=== PATIENT | female | born 1945 | race Caucasian/White ===

== ENCOUNTER 2016-09-14 14:37 | Emergency (ER) | payer MEDICARE, OTHER ==
--- NOTE | 2016-09-14 15:36 | ED Physician Documentation ---
Flank Pain - HPI Stated Complaint: Right flank pain Chief Complaint: Abdominal Pain Onset: hours Duration: waxing, other Severity: mild Quality: pain Associated Symptoms: denies: fever, chills Exacerbated by: nothing Relieved by: nothing Further Comments: yes (Patient has been ahving some nondiscript right flank pain. No precipitating or modifying factor noted. Has had some nausea, no vomiting noted. Has had about a 30lb weight loss over the last 6 months. No breathing problems. Has had two CVA recently, has had pleural effusion on the left with thoracentesis. No evidence of cancer on cytology (done at the [facility]) ) - ROS CONST: no problems GI/: constipation (Not having BM but 2 times a week) CVS/RESP: none - SOCIAL HX Smoking History: quit less than 1 year (2-4 ppd, quit 6 months ago) Alcohol Use: none Drug Use: none - FAMILY HX Family History: no significant history - PAST HX Past History: other (CVA, DVT) Ischemic Bowel Risk Factors: none Other History: none Surgeries/Procedures: other (removal of salivary gland, BTL) Immunizations: influenza - VITAL SIGNS Vital Signs: Vital Signs Temp Pulse Resp BP Pulse Ox 98.3 F 72 16 139/70 90 L 09/14/16 15:00 09/14/16 15:00 09/14/16 15:00 09/14/16 15:00 09/14/16 15:00 - REVIEWED ASSESSMENTS Nursing Assessment Reviewed: Yes Vitals Reviewed: Yes Abdominal Pain Physical Exam - Physical Exam General Appearance: alert, mild distress NECK: normal inspection, supple. No: stiff neck RESPIRATORY: no resp distress, chest non-tender, other (decreased in the LLL). No: wheezes, rales, rhonchi CVS: reg rate & rhythm, heart sounds normal, equal pulses, no murmur, no gallop ABDOMEN: soft, no organomegaly, normal bowel sounds, no abdominal bruit, no distension, non-tender. No: distended, guarding BACK: normal inspection, no CVA tenderness. No: CVA tenderness (R), CVA tenderness (L) SKIN: warm/dry, normal color, other (ecchymotic lesions) NEURO: oriented X3, CN's nml as tested, motor nml, sensation nml Vital Signs: Vital Signs Temp Pulse Resp BP Pulse Ox 98.3 F 72 16 139/70 90 L 09/14/16 15:00 09/14/16 15:00 09/14/16 15:00 09/14/16 15:00 09/14/16 15:00 Discharge Clincal Impression: Lung mass, Weight loss Additional Instructions: Start drinking some Ensure/ Boost on a daily basis. I will make an appointment with [facility] for further diagnosis and treatment. Home Medications: Ambulatory Orders Rivaroxaban [Xarelto] 20 mg PO DAILY 09/14/16 Condition: Good Disposition: HOME, SELF-CARE Decision to Admit: NO Date of Decison to Admit: 09/14/16 Decision Time: 18:04
[2016-09-14 15:47] LABS: BASOPHILS % 0.1 (0.0-1.5); EOSINOPHILS % 0.7 % (0.0-6.8); LYMPHOCYTES # 0.7 # k/uL (0.6-4.0); MONOCYTES # 0.4 # k/uL (0.0-0.9); MONOCYTES % 4.4 % (0.0-11.0); NEUTROPHILS # 6.7 # k/uL (1.4-7.7)
[2016-09-14] MEDS ORDERED: 0.9 % SODIUM CHLORIDE 1,000 ML IV ONE (15:47)
[2016-09-14 16:00] LABS: eGFR (African) > 60; eGFR (Non-African) > 60
[2016-09-14] MEDS ORDERED: 0.9 % SODIUM CHLORIDE 1,000 ML IV SCH ×2 (16:00→17:00)
[2016-09-14 18:44] VITALS: BP 154/85
--- NOTE | 2016-09-14 23:58 | Diagnostic Imaging Report ---
Report Submission Date: Sep 14, 2016 4:36:07 PM SERVICE OFFICER Patient ~ Study Name: LUIS HOUSTON ~ Date: Sep 14, 2016 4:07:30 PM SERVICE OFFICER ~ Modality Type: CR Gender: F ~ Description: ABDOMEN : 45 ~ Institution: [facility] Physician: CHONG JACK ~ ~ ~ ~ Abdominal series and single view chest History: Abdominal pain, constipation, and low back pain Findings: A single view of the chest reveals hyperinflation, calcified granulomas, clear right lung emphysema, and aortic atherosclerosis. The lower half of the left hemithorax is opacified consistent with a combination of left lower lobe and lingular consolidation or collapse + pleural effusion. A mass lesion cannot be excluded in the left lung. Upright and supine abdominal radiographs reveal a normal bowel gas pattern without obstruction or free air. Moderate colonic stool is present without significant constipation. Lower lumbar spondylosis is present. Impression: 1. Dense consolidation or collapse of the left lower lung with left pleural effusion. A large mass lesion cannot be excluded. Recommend computed tomography of the chest with intravenous contrast. 2. Nonobstructive bowel gas pattern. 3. Emphysema. ~ Electronically signed on Sep 14, 2016 4:36:07 PM SERVICE OFFICER by: Lex BROCK
--- NOTE | 2016-09-14 23:59 | Diagnostic Imaging Report ---
Report Submission Date: Sep 14, 2016 5:36:10 PM BED OPERATOR Patient ~ Study Name: LUIS HOUSTON ~ Date: Sep 14, 2016 5:12:37 PM BED OPERATOR ~ Modality Type: CT\SR Gender: F ~ Description: CT CHEST W/ CONTRAST : 45 ~ Institution: [facility] Physician: CHONG JACK ~ ~ ~ ~ Computed tomography of the chest with contrast History: Left lower lobe mass versus pneumonia Findings: A transverse chest sections are obtained after the mL intravenous omnipaque 350 revealing moderate diffuse the left pleural thickening moderate, loculated left pleural effusion and marked volume loss in the left lower lobe, lingula, and anterior left upper lobe. Emphysema is observed. And left suprahilar extends into the aortopulmonary window and measures 2 x 3.6 cm. A few additional enlarged superior mediastinal lymph nodes are present . Scattered calcified granulomas are observed. The right lung is clear. Impression: 1. Aortopulmonary window vs pleural based mass invading mediastinum with maximal dimension of 3.6 cm. Additional superior mediastinal lymphadenopathy is observed. 2. Diffuse left pleural thickening, loculated left pleural effusion, and marked left lung volume loss. 3. Emphysema and old granulomatous disease. 4. Recommend PET CT for further evaluation. ~ Electronically signed on Sep 14, 2016 5:36:10 PM BED OPERATOR by: Lex BROCK
== END 2016-09-14 18:42 | disposition home or self-care (01) ==
LOC: ED 14:37
DX: R91.8 Other nonspecific abnormal finding of lung field (principal); R63.4 Abnormal weight loss; F17.210 Nicotine dependence, cigarettes, uncomplicated
CPT/HCPCS: 71260; 74022; 80053; 82150; 85025; J7030; 99283; S1016